=== PATIENT | male | born 1980 | race Caucasian/White ===

== ENCOUNTER 2016-08-03 14:15 | Emergency (ER) | payer OTHER ==
[~2016-08-03] VITALS: Ht 167.6 cm; Wt 117.9 kg
[~2016-08-03 14:15] MED LIST: AMOXICILLIN500 MG PO; CITRATE OF MAG296 ML PO; COLACE100 MG PO; METHADONE10 MG PO; MIRALAX17 GM PO; MOTRIN600 MG PO
[2016-08-03] MEDS ORDERED: AUGMENTIN875 MG PO (16:23)
[2016-08-03] MEDS ORDERED: PREDNISONE20 MG PO (16:23)
[2016-08-03 16:45] VITALS: BP 154/90
== END 2016-08-03 16:45 | disposition home or self-care (01) ==
LOC: EME 14:15
DX: K02.9 Dental caries, unspecified (principal); F17.200 Nicotine dependence, unspecified, uncomplicated
CPT/HCPCS: 99281; 99284; J7512

== ENCOUNTER 2017-03-12 17:17 | Emergency (ER) | payer OTHER ==
[~2017-03-12] VITALS: Ht 167.6 cm; Wt 109.3 kg
[~2017-03-12 17:17] MED LIST changes: +AUGMENTIN875 MG PO; +PREDNISONE20 MG PO
[2017-03-12 17:24] VITALS: BP 213/110
[2017-03-12] MEDS ORDERED: FLEXERIL10 MG PO (18:11)
[2017-03-12] MEDS ORDERED: MOTRIN800 MG PO (18:11)
[2017-03-12] MEDS ORDERED: BENADRYL50 MG PO (18:11)
[2017-03-12] MEDS ORDERED: PEPCID20 MG PO (18:11)
== END 2017-03-12 18:30 | disposition home or self-care (01) ==
LOC: EME 17:17
DX: L23.3 Allergic contact dermatitis due to drugs in contact with skin (principal); T50.995A Adverse effect of other drugs, medicaments and biological substances, initial encounter; M62.838 Other muscle spasm; M25.511 Pain in right shoulder; M54.6 Pain in thoracic spine; I10 Essential (primary) hypertension; F17.200 Nicotine dependence, unspecified, uncomplicated
CPT/HCPCS: 99281; 99284

== ENCOUNTER 2017-09-29 07:52 | Emergency (ER) | payer OTHER ==
[~2017-09-29] VITALS: Ht 167.6 cm; Wt 104.1 kg
[~2017-09-29 07:52] MED LIST changes: +BENADRYL50 MG PO; +FLEXERIL10 MG PO; +MOTRIN800 MG PO; +PEPCID20 MG PO
[2017-09-29] MEDS ORDERED: NAPROSYN500 MG PO (08:36)
[2017-09-29] MEDS ORDERED: PERIDEX473 ML MM (08:36)
[2017-09-29] MEDS ORDERED: AUGMENTIN875 MG PO (08:36)
[2017-09-29 09:01] VITALS: BP 147/95
== END 2017-09-29 09:02 | disposition home or self-care (01) ==
LOC: EME 07:52
DX: K02.9 Dental caries, unspecified (principal); K03.81 Cracked tooth; Z71.6 Tobacco abuse counseling
CPT/HCPCS: 99281; 99283

== ENCOUNTER 2017-11-24 08:58 | Emergency (ER) | payer OTHER ==
[~2017-11-24] VITALS: Ht 167.6 cm; Wt 101.1 kg
[~2017-11-24 08:58] MED LIST changes: +NAPROSYN500 MG PO; +PERIDEX473 ML MM
[2017-11-24] MEDS ORDERED: AMOXICILLIN500 MG PO (09:26)
[2017-11-24] MEDS ORDERED: MOTRIN800 MG PO (09:30)
[2017-11-24 09:31] VITALS: BP 120/72
== END 2017-11-24 09:35 | disposition home or self-care (01) ==
LOC: EME 08:58
DX: K04.7 Periapical abscess without sinus (principal); G89.29 Other chronic pain; Z79.891 Long term (current) use of opiate analgesic; F17.200 Nicotine dependence, unspecified, uncomplicated
CPT/HCPCS: 99281; 99284

== ENCOUNTER 2017-12-23 00:58 | Emergency (ER) | payer OTHER ==
[~2017-12-23] VITALS: Ht 167.6 cm; Wt 102.8 kg
[2017-12-23] MEDS ORDERED: NORCO 5/3251 TABLET PO (02:21)
[2017-12-23] MEDS ORDERED: PEN-VEE K,VEET500 MG PO (02:21)
[2017-12-23 02:38] VITALS: BP 165/101
== END 2017-12-23 02:39 | disposition home or self-care (01) ==
LOC: EME 00:58
PROC: 3E0T3BZ Introduction of Anesthetic Agent into Peripheral Nerves and Plexi, Percutaneous Approach (ICD-10-PCS; principal; 2017-12-23)
DX: K04.7 Periapical abscess without sinus (principal); F17.200 Nicotine dependence, unspecified, uncomplicated
CPT/HCPCS: 99281; 99284

== ENCOUNTER 2017-12-28 09:11 | Emergency (ER) | payer OTHER ==
[~2017-12-28] VITALS: Ht 167.6 cm; Wt 101.2 kg
[~2017-12-28 09:11] MED LIST changes: +NORCO 5/3251 TABLET PO; +PEN-VEE K,VEET500 MG PO
[2017-12-28] MEDS ORDERED: LORTAB 5-325 M1 EACH PO (11:01)
[2017-12-28 11:13] VITALS: BP 135/98
== END 2017-12-28 11:13 | disposition home or self-care (01) ==
LOC: EME 09:11
PROC: 2W3CX1Z Immobilization of Right Lower Arm using Splint (ICD-10-PCS; principal; 2017-12-28)
DX: S62.316A Displaced fracture of base of fifth metacarpal bone, right hand, initial encounter for closed fracture (principal); W22.01XA Walked into wall, initial encounter; Z79.891 Long term (current) use of opiate analgesic; F17.210 Nicotine dependence, cigarettes, uncomplicated
CPT/HCPCS: 73130; 99281; 99283